=== PATIENT | male | born 1995 | race Asian ===

== ENCOUNTER 2018-05-28 18:48 | Inpatient (IN) | payer SELFPAY ==
[~2018-05-28] VITALS: Ht 165.1 cm; Wt 75.0 kg
[2018-05-28 19:35] VITALS: Ht 165.1 cm; Wt 75.0 kg
[2018-05-28 20:58] LABS: PLATELET COUNT 256 x10^3mcL (130-400); RED CELL DISTRIBUTION WIDTH 13.2 % (11.5-14.5)
[2018-05-28 21:00] LABS: CARBON DIOXIDE 33.1 mmol/L (21-32); CHLORIDE SERUM 92 mmol/L (98-107); GFR1 > 60 mL/min; GLUCOSE SERUM 152 mg/dL (74-106); POTASSIUM SERUM 4.3 mmol/L (3.5-5.1); SODIUM SERUM 131 mmol/L (136-145)
[2018-05-28 21:02] LABS: ALKALINE PHOSPHATASE 66 U/L (46-116); ALT/SGPT 37 U/L (16-63); AST/SGOT 19 U/L (15-37); BILIRUBIN TOTAL 1.3 mg/dL (0.20-1.00)
[2018-05-28 21:14] LABS: LIPASE 6999 IU/L (73-393)
[2018-05-28 21:22] LABS: UA SPECIFIC GRAVITY >=1.030 (1.005-1.035); microscopic required? YES; urine erythrocyte 2+ (NEGATIVE)
[2018-05-28 21:46] LABS: BAND NEUTROPHIL 11 % (0-10); BASOPHIL 0 % (0-2); MONOCYTE 6 % (0-7); SEGMENTED NEUTROPHILS 82 % (37-75)
[2018-05-28 21:47] LABS: PLATELET MORPHOLOGY LARGE PLATELET SEEN; rbc morphology (normal/abnorm) ABNORMAL (NORMAL)
[2018-05-28 23:49] VITALS: BP 147/110
[2018-05-29 00:05] LABS: CHOLESTEROL/HDL RATIO 3.2; MAGNESIUM 2.1 mg/dL (1.8-2.4); PHOSPHOROUS 2.8 mg/dL (2.5-4.9)
[2018-05-29 00:13] LABS: FREE T4 0.91 ng/dL (0.76-1.46); FREE THYROXINE INDEX 1.8 ug/dL (1.4-4.5); T4(THYROXINE) 5.1 ug/dL (4.7-13.3)
[2018-05-29 00:33] LABS: T3 TOTAL 0.65 ng/mL
[2018-05-29 06:13] VITALS: BP 155/102
[2018-05-29 06:23] LABS: PLATELET COUNT 205 x10^3mcL (130-400); RED CELL DISTRIBUTION WIDTH 13.4 % (11.5-14.5)
[2018-05-29 06:34] LABS: CALCIUM 8.6 mg/dL (8.5-10.1); CARBON DIOXIDE 27.2 mmol/L (21-32); CHLORIDE SERUM 100 mmol/L (98-107); CREATININE SERUM 0.9 mg/dL (0.7-1.3); GFR1 > 60 mL/min; GLUCOSE SERUM 106 mg/dL (74-106); POTASSIUM SERUM 4.2 mmol/L (3.5-5.1); SODIUM SERUM 134 mmol/L (136-145)
[2018-05-29 07:17] LABS: LIPASE 3836 IU/L (73-393)
[2018-05-29 07:27] LABS: AMPHETAMINE QUAL UR NONE DETECTED (See below)
[2018-05-29 08:18] VITALS: BP 149/98
[2018-05-29 10:37] LABS: BAND NEUTROPHIL 14 % (0-10); BASOPHIL 0 % (0-2); MONOCYTE 6 % (0-7); PLATELET MORPHOLOGY PLATELETS NORMAL; SEGMENTED NEUTROPHILS 75 % (37-75); rbc morphology (normal/abnorm) ABNORMAL (NORMAL); tear drop cell (dacryocyte) 1+
[2018-05-29 16:11] VITALS: BP 145/101
[2018-05-29 20:42] VITALS: BP 140/104
[2018-05-30 04:55] VITALS: BP 152/100
[2018-05-30 06:17] LABS: CALCIUM 8.5 mg/dL (8.5-10.1); CARBON DIOXIDE 28.4 mmol/L (21-32); CHLORIDE SERUM 100 mmol/L (98-107); GFR1 > 60 mL/min; GLUCOSE SERUM 115 mg/dL (74-106); LIPASE 842 IU/L (73-393); SODIUM SERUM 137 mmol/L (136-145)
[2018-05-30 06:41] LABS: PLATELET COUNT 236 x10^3mcL (130-400); RED CELL DISTRIBUTION WIDTH 13.6 % (11.5-14.5)
[2018-05-30 08:26] VITALS: BP 150/101
[2018-05-30 10:54] LABS: ATYPICAL LYMPH 2 %; BAND NEUTROPHIL 23 % (0-10); BASOPHIL 0 % (0-2); MONOCYTE 6 % (0-7); SEGMENTED NEUTROPHILS 69 % (37-75)
[2018-05-30 10:55] LABS: PLATELET MORPHOLOGY PLATELETS DECREASED; rbc morphology (normal/abnorm) NORMAL (NORMAL)
[2018-05-30 16:18] VITALS: BP 154/113
[2018-05-30 20:34] VITALS: BP 150/112
[2018-05-31 05:39] VITALS: BP 151/105
[2018-05-31 07:41] LABS: CALCIUM 8.3 mg/dL (8.5-10.1); CHLORIDE SERUM 99 mmol/L (98-107); CREATININE SERUM 0.8 mg/dL (0.7-1.3); GFR1 > 60 mL/min; GLUCOSE SERUM 121 mg/dL (74-106); LIPASE 525 IU/L (73-393); POTASSIUM SERUM 3.6 mmol/L (3.5-5.1); SODIUM SERUM 136 mmol/L (136-145)
[2018-05-31 07:58] LABS: PLATELET COUNT 238 x10^3mcL (130-400); RED CELL DISTRIBUTION WIDTH 13.8 % (11.5-14.5)
[2018-05-31 10:24] VITALS: BP 156/109
[2018-05-31 10:27] LABS: BAND NEUTROPHIL 10 % (0-10); BASOPHIL 0 % (0-2); MONOCYTE 5 % (0-7); PLATELET MORPHOLOGY PLATELETS NORMAL; SEGMENTED NEUTROPHILS 79 % (37-75); rbc morphology (normal/abnorm) ABNORMAL (NORMAL); tear drop cell (dacryocyte) 1+
[2018-05-31 17:13] VITALS: BP 152/100
[2018-05-31 21:35] VITALS: BP 156/98
[2018-06-01 06:52] VITALS: BP 141/93
[2018-06-01 09:08] LABS: CALCIUM 8.8 mg/dL (8.5-10.1); CARBON DIOXIDE 31.4 mmol/L (21-32); CHLORIDE SERUM 95 mmol/L (98-107); CREATININE SERUM 0.8 mg/dL (0.7-1.3); GFR1 > 60 mL/min; GLUCOSE SERUM 105 mg/dL (74-106); MAGNESIUM 2.4 mg/dL (1.8-2.4); PHOSPHOROUS 2.9 mg/dL (2.5-4.9); POTASSIUM SERUM 3.1 mmol/L (3.5-5.1); SODIUM SERUM 136 mmol/L (136-145)
[2018-06-01 09:17] LABS: PLATELET COUNT 270 x10^3mcL (130-400); RED CELL DISTRIBUTION WIDTH 13.9 % (11.5-14.5)
[2018-06-01 09:44] LABS: AMYLASE 107 U/L (25-115); LIPASE 613 IU/L (73-393)
[2018-06-01 10:06] LABS: BAND NEUTROPHIL 11 % (0-10); BASOPHIL 0 % (0-2); MONOCYTE 9 % (0-7); SEGMENTED NEUTROPHILS 73 % (37-75)
[2018-06-01 10:11] LABS: rbc morphology (normal/abnorm) ABNORMAL (NORMAL); tear drop cell (dacryocyte) 1+
[2018-06-01 10:12] VITALS: BP 144/100
[2018-06-01] MEDS ORDERED: ZES10 PO (11:06)
[2018-06-01 11:29] VITALS: BP 144/100
== END 2018-06-01 14:44 | disposition home or self-care (01) | DRG 871 ==
LOC: ED 18:48 → MU 22:41
PROVIDERS: Emergency Medicine; General Practice
DX: A41.9 Sepsis, unspecified organism (principal); K85.20 Alcohol induced acute pancreatitis without necrosis or infection; N17.0 Acute kidney failure with tubular necrosis; E43 Unspecified severe protein-calorie malnutrition; E87.1 Hypo-osmolality and hyponatremia; D50.9 Iron deficiency anemia, unspecified; E11.65 Type 2 diabetes mellitus with hyperglycemia; E83.42 Hypomagnesemia; F19.10 Other psychoactive substance abuse, uncomplicated; F10.10 Alcohol abuse, uncomplicated; K59.00 Constipation, unspecified; R65.20 Severe sepsis without septic shock; Z68.26 Body mass index [BMI] 26.0-26.9, adult
CPT/HCPCS: 84439; 90658; J1940; J2270; J2405; J2543; J3480; J3490; J7030; Q0092; Q9967